=== PATIENT | male | born 1980 | race Caucasian/White ===

== ENCOUNTER 2021-09-12 06:36 | Emergency (ER) | payer BC ==
[~2021-09-12] VITALS: Ht 172.7 cm; Wt 77.3 kg
[2021-09-12] MEDS ORDERED: normal saline 1000ML IV soln IVB ONE (07:00)
[2021-09-12] MEDS ORDERED: HYDROmorphone inj. 0.5 MG/0.5 ML DISP.SYRIN IV PRN (07:00)
[2021-09-12] MEDS ORDERED: ketorolac trometh. 30mg/ml inj. IV ONE (07:00)
[2021-09-12] MEDS ORDERED: ondansetron/PF 4mg/2ml inj IV ONE (07:00)
[2021-09-12 07:30] LABS: BASOPHILS % (AUTO) 0.3 % (0-1); EOSINOPHILS # (AUTO) 0.1 X10'3 (0-0.9); EOSINOPHILS % (AUTO) 1.2 % (0-6); HEMATOCRIT 38.8 % (42.0-52.0); HEMOGLOBIN 13.2 g/dl (14.0-17.9); LYMPHOCYTES % (AUTO) 34.4 % (21-51); MEAN CORPUSCULAR HEMOGLOBIN 30.7 PG (27.0-31.0); MEAN CORPUSCULAR HGB CONC 34.1 g/dL (33.0-36.5); MEAN PLATELET VOLUME 8.2 FL (7.4-10.4); MONOCYTES # (AUTO) 0.4 X10'3 (0-0.9); MONOCYTES % (AUTO) 7.5 % (2-12); NEUTROPHILS # (AUTO) 3.3 X10'3 (1.8-7.7); NEUTROPHILS % (AUTO) 56.6 % (42-75); PLATELET COUNT 272 X10'3 (140-440); RED BLOOD COUNT 4.31 X10'6 (4.70-6.10); RED CELL DISTRIBUTION WIDTH 13.4 % (11.5-14.5); WHITE BLOOD COUNT 5.8 X10'3 (4.5-11.0)
[2021-09-12 07:38] VITALS: BP 118/76
[2021-09-12 07:45] LABS: ALANINE AMINOTRANSFERASE 20 U/L (12-78); ALBUMIN/GLOBULIN RATIO 1.3 (1.1-1.5); ALKALINE PHOSPHATASE 72 IU/L (46-116); ANION GAP 12 (8-16); ASPARTATE AMINO TRANSFERASE 21 U/L (10-37); BILIRUBIN,TOTAL 0.4 MG/DL (0.1-1.0); BLOOD UREA NITROGEN 16 MG/DL (7-18); BUN/CREATININE RATIO 13.4 (5.4-32.0); CALCIUM 8.6 MG/DL (8.5-10.1); CHLORIDE 108 MMOL/L (99-107); CREATININE 1.19 MG/DL (0.60-1.10); GLUCOSE 116 MG/DL (70-104); POTASSIUM 3.7 MMOL/L (3.5-5.1); SODIUM 143 MMOL/L (135-145); TOTAL CARBON DIOXIDE 23.3 MMOL/L (24-32); eGFR 68 ML/MIN
--- NOTE | 2021-09-12 08:02 | NUR ---
BREAKING PRIMARY NURSE AT THIS TIME ,MD AT BEDSIDE .
[2021-09-12] MEDS ORDERED: KETO10TA2 PO (08:23)
[2021-09-12] MEDS ORDERED: HYDR-3965 PO ×2 (08:23→10:07)
[2021-09-12] MEDS ORDERED: TADA20TA PO (08:23)
[2021-09-12] MEDS ORDERED: ONDA4TAB12 PO (08:23)
[2021-09-12 09:29] LABS: CLARITY,URINE SLIGHTLY CLOUDY (Clear); COLOR,URINE YELLOW (Yellow); GLUCOSE, URINE NEGATIVE (Neg); KETONES,URINE NEGATIVE (Neg); LEUKOCYTE ESTERASE ,URINE NEGATIVE (Neg); NITRITES, URINE NEGATIVE (Neg); OCCULT BLOOD,URINE LARGE (Neg); PROTEIN,URINE TRACE mg/dl (Neg); UROBILINOGEN,URINE 0.2 E.U/dL (0.2-1.0)
[2021-09-12 09:31] LABS: UA COLLECTION TYPE OTHER
[2021-09-12 09:37] LABS: RBC,URINE TNTC /HPF (0-2); WBC,URINE 0-4 /HPF (0-4)
[2021-09-12 09:38] LABS: BACTERIA,URINE NONE SEEN /HPF (Neg); MUCUS STRANDS MODERATE /LPF (Neg); SQUAMOUS EPITHELIAL CELL,UR FEW /LPF (FEW)
--- NOTE | 2021-09-12 10:05 | NUR ---
Pt and given and understands d/c instructions. Ambulatory with a steady gait. IV d/c'd, catheter was intact.
== END 2021-09-12 10:05 | disposition home or self-care (01) ==
LOC: ER 06:37
DX: N20.1 Calculus of ureter (principal); R11.2 Nausea with vomiting, unspecified
CPT/HCPCS: 36415; 74176; 80053; 81001; 85025; 96361; 96374; 96375; 99284; J1170; J1885; J2405; J7030

== ENCOUNTER 2023-11-26 12:29 | Emergency (ER) | payer BC ==
[~2023-11-26] VITALS: Ht 172.7 cm; Wt 73.6 kg
[~2023-11-26 12:29] MED LIST: HYDR-3965 PO; KETO10TA2 PO; ONDA4TAB12 PO; TADA20TA PO
[2023-11-26 12:51] VITALS: BP 107/72; PULSE 65; RESP 18; TEMP 97.8; O2SAT 98
[2023-11-26] MEDS: TETanus/Pertussis (Acell)/Diphther VAC/PF (Tdap-Adult) 0.5ml syringe IMVAC ONE (13:25)
[2023-11-26] MEDS: LIDOcaine 1% W/epiNEPHrine 1:100,000 20ml vial IJ ONE (13:48)
== END 2023-11-26 14:55 | disposition home or self-care (01) ==
LOC: ER 12:30
DX: S61.411A Laceration without foreign body of right hand, initial encounter (principal); Z79.899 Other long term (current) drug therapy; Y93.H2 Activity, gardening and landscaping; Y93.89 Activity, other specified; Y92.89 Other specified places as the place of occurrence of the external cause; Y99.8 Other external cause status
CPT/HCPCS: 12001; 90471; 90715; 99283; A6449